=== PATIENT | female | born 1945 | race Caucasian/White ===

== ENCOUNTER 2020-08-14 13:08 | Outpatient (REF) | payer MEDICARE, SELFPAY ==
[2020-08-14 15:00] LABS: Anion Gap 13 (12-20); Blood Urea Nitrogen 20 mg/dL (9-16); Carbon Dioxide 27 mmol/L (22-29); Chloride 106 mmol/L (96-108); Estimated Glomerular Filt Rate > 60; Potassium 4.5 mmol/L (3.3-5.1); Sodium 141 mmol/L (135-145)
[2020-08-14 15:12] LABS: Free T4 (Free Thyroxine) 1.15 ng/dL (0.71-1.85)
== END 2020-08-14 13:09 | disposition home or self-care (01) ==
LOC: HO.10HDL 13:08
PROVIDERS: Visit Provider Family Medicine
DX: I10 Essential (primary) hypertension (principal); E03.9 Hypothyroidism, unspecified
CPT/HCPCS: 36415; 80051; 82565; 84439; 84520

== ENCOUNTER 2021-01-08 07:53 | Outpatient (REF) | payer MEDICARE, SELFPAY ==
--- NOTE | ~2021-01-08 | XR_ITS ---
EXAMINATION: XR BOTH KNEES AP STANDING XR RIGHT KNEE, 2 VIEWS XR LEFT KNEE, 2 VIEWS CLINICAL INFORMATION: Pain. COMPARISON: Left knee radiographs dated 01/28/2011 and bilateral knee radiographs dated 08/04/2008. TECHNIQUE: Standing AP view of both knees and lateral and sunrise views of the right and left knee. FINDINGS: Right knee: Severe medial compartment joint space narrowing with mild bony remodeling and subchondral sclerosis. Tricompartmental marginal osteophytes. No osseous erosion. No fracture or dislocation. Small joint effusion. Left knee: Severe medial compartment joint space narrowing with subchondral sclerosis. Tricompartmental marginal osteophytes. No osseous erosion. No fracture or dislocation. Trace joint effusion. No abnormal soft tissue calcification. XR/XR knee LT 2V IMPRESSION: RIGHT KNEE: Tricompartmental osteoarthritis, most severe within the medial compartment. LEFT KNEE: Tricompartmental osteoarthritic, most severe within the medial compartment.
--- NOTE | ~2021-01-08 | XR_ITS ---
EXAMINATION: XR BOTH KNEES AP STANDING XR RIGHT KNEE, 2 VIEWS XR LEFT KNEE, 2 VIEWS CLINICAL INFORMATION: Pain. COMPARISON: Left knee radiographs dated 01/28/2011 and bilateral knee radiographs dated 08/04/2008. TECHNIQUE: Standing AP view of both knees and lateral and sunrise views of the right and left knee. FINDINGS: Right knee: Severe medial compartment joint space narrowing with mild bony remodeling and subchondral sclerosis. Tricompartmental marginal osteophytes. No osseous erosion. No fracture or dislocation. Small joint effusion. Left knee: Severe medial compartment joint space narrowing with subchondral sclerosis. Tricompartmental marginal osteophytes. No osseous erosion. No fracture or dislocation. Trace joint effusion. No abnormal soft tissue calcification. XR/XR knee RT 2V IMPRESSION: RIGHT KNEE: Tricompartmental osteoarthritis, most severe within the medial compartment. LEFT KNEE: Tricompartmental osteoarthritic, most severe within the medial compartment.
--- NOTE | ~2021-01-08 | XR_ITS ---
EXAMINATION: XR BOTH KNEES AP STANDING XR RIGHT KNEE, 2 VIEWS XR LEFT KNEE, 2 VIEWS CLINICAL INFORMATION: Pain. COMPARISON: Left knee radiographs dated 01/28/2011 and bilateral knee radiographs dated 08/04/2008. TECHNIQUE: Standing AP view of both knees and lateral and sunrise views of the right and left knee. FINDINGS: Right knee: Severe medial compartment joint space narrowing with mild bony remodeling and subchondral sclerosis. Tricompartmental marginal osteophytes. No osseous erosion. No fracture or dislocation. Small joint effusion. Left knee: Severe medial compartment joint space narrowing with subchondral sclerosis. Tricompartmental marginal osteophytes. No osseous erosion. No fracture or dislocation. Trace joint effusion. No abnormal soft tissue calcification. XR/XR knee standing BI IMPRESSION: RIGHT KNEE: Tricompartmental osteoarthritis, most severe within the medial compartment. LEFT KNEE: Tricompartmental osteoarthritic, most severe within the medial compartment.
== END 2021-01-08 07:54 | disposition home or self-care (01) ==
LOC: HO.HOSX 07:53
PROVIDERS: Visit Provider Physician Assistant
DX: M17.0 Bilateral primary osteoarthritis of knee (principal)
CPT/HCPCS: 20610; 73560; 73565; 99202; J1040

== ENCOUNTER 2021-04-12 11:48 | Outpatient (REF) | payer MEDICARE, SELFPAY ==
[2021-04-12 14:26] LABS: Anion Gap 10 (12-20); Blood Urea Nitrogen 24 mg/dL (9-16); Carbon Dioxide 28 mmol/L (22-29); Chloride 106 mmol/L (96-108); Estimated Glomerular Filt Rate > 60; Potassium 4.7 mmol/L (3.3-5.1); Sodium 139 mmol/L (135-145)
[2021-04-12 14:43] LABS: Free T4 (Free Thyroxine) 1.17 ng/dL (0.71-1.85)
== END 2021-04-12 11:49 | disposition home or self-care (01) ==
LOC: HO.10HDL 11:48
PROVIDERS: Visit Provider Family Medicine
DX: E03.9 Hypothyroidism, unspecified (principal); I10 Essential (primary) hypertension
CPT/HCPCS: 36415; 80051; 82565; 84439; 84520

== ENCOUNTER 2022-03-04 10:51 | Outpatient (REF) | payer MEDICARE, SELFPAY ==
[2022-03-04 14:04] LABS: Anion Gap 15 (12-20); Blood Urea Nitrogen 18 mg/dL (9-16); Carbon Dioxide 26 mmol/L (22-29); Chloride 107 mmol/L (96-108); Estimated Glomerular Filt Rate > 60; Potassium 4.5 mmol/L (3.3-5.1); Sodium 143 mmol/L (135-145)
[2022-03-04 14:25] LABS: Free T4 (Free Thyroxine) 1.28 ng/dL (0.71-1.85); Thyroid Stimulating Hormone 4.15 uIU/mL (0.32-4.0)
== END 2022-03-04 10:52 | disposition home or self-care (01) ==
LOC: HO.10HDL 10:51
PROVIDERS: Visit Provider Family Medicine
DX: I10 Essential (primary) hypertension (principal); E03.9 Hypothyroidism, unspecified
CPT/HCPCS: 36415; 80051; 82565; 84439; 84443; 84520

== ENCOUNTER → 2022-03-17 10:08 | Outpatient (REF) | payer MEDICARE, SELFPAY ==
--- NOTE | 2022-03-17 10:44 | CA_ITS ---
Transthoracic Echocardiogram Patient (Last, First, Middle): Maggy Wheeler D Gender: Female Date of : 1945 Age: 76 Procedure Date: 03/17/2022 Procedure Type: Transthoracic Echocardiogram Location: OP Height: 165.1 cm Weight: 149.69 kg BSA: 2.45 m2 Heart Rate: bpm BP: 115 / 70 mmHg Software Implementation Project Manager: TO Referring MD: Dandre Barnes MD Symptoms: Chronic afib Study Quality: Technically Difficult/Contrast Conclusions: - 1. Low normal LV systolic function with restrictive filling pattern 2. Biatrial enlargement, right greater than left 3. Moderately severe tricuspid regurgitation 4. Moderate to severe elevation of right ventricular systolic pressure with significantly elevated right atrial pressures 5. No gross pericardial effusion Findings Procedure Information Contrast agent, definity, is being given per protocol without apparent complications. The quality of the study was technically difficult. The study quality is limited by patients body habitus. Left Ventricle Normal left ventricular cavity size. There is normal left ventricular wall thickness. The left ventricular systolic function is low normal. The visually estimated ejection fraction is between 50-55%. Spectral Doppler is indicative of a restrictive filling pattern. Elevated left ventricular end diastolic pressure. Right Ventricle The right ventricle was not well visualized. There is low normal right ventricular systolic function. Atria The left atrium is moderately dilated. Interatrial shunt cannot be excluded. The right atrium is severely dilated. Aortic Valve The aortic valve was not well visualized. There is no aortic valve stenosis. There is mild aortic valve regurgitation. Mitral Valve There is mild anterior and posterior mitral leaflet thickening. There is trace mitral valve regurgitation. There is no mitral valve stenosis. Pulmonic Valve The pulmonic valve is likely normal. There is trace to mild pulmonic valve regurgitation. Tricuspid Valve The tricuspid valve was not well visualized. There is moderate to severe tricuspid valve regurgitation. Significantly elevated right atrial pressure. Moderate to severe pulmonary hypertension is present. Great Vessels All visible segments of the aorta are normal in size. The pulmonary artery was not well visualized. Venous The inferior vena cava is moderately dilated and collapses less than 50% with inspiration. Pericardium/Pleural There is no evidence of pericardial effusion. Prior Study Comparison no previous study in the last 5 years for comparison Measurements 2D Linear Measurements IVSd: 1.00 0.6-0.9/0.6-1.0 cm LVIDd: 5.15 3.9-5.3/4.2-5.9 cm LVIDd Index: 2.10 2.4-3.2/2.2-3.1 cm/m2 LVIDs: 3.73 2.0-3.6 cm LVPWd: 1.09 0.7-1.1 cm LA Diam: 4.80 2.7-3.8/3.0-4.0 cm LAIDs Index: 1.96 1.5-2.3 cm/m2 LV Mass: 252.63 67-162/88-224 g LV Mass Index: 103.11 43-95/49-115 g/m2 LVOT Diam: 2.00 3.0+(-)1.3 cm 2D Systolic Function EF 4C: 50.70 >55% EF BiP: 51.00 >55% Mitral Valve MV VTI: 0.33 MV Pk Harshil: 1.51 MV Mn Harshil: 0.86 MV Pk Grad: 9.00 MV Mn Grad: 4.00 MV Pk E: 1.47 MV Decel Time: 222.00 E'Lateral: 11.00 E'Medial: 8.92 E/E' Med: 16.50 E/E' Lat: 13.40 PHT: 65.00 MVA PHT: 3.38 MVA Continuity: 2.54 Decel Storey: 6.61 Aortic Valve AoV Pk Harshil: 1.34 AoV Mn Harshil: 0.99 AoV VTI: 0.35 AoV Pk Grad: 7.00 Aov Mn Grad: 4.00 BRYNN Cont.VTI: 2.41 LVOT LVOT Pk Harshil: 1.17 LVOT Mn Harshil: 0.75 LVOT VTI: 0.27 LVOT Pk Grad: 5.00 LVOT Mn Grad: 3.00 LVOT Diam: 2.00 LVOT Area: 3.14 Diastolic Function MV Pk E: 1.47 E'Medial: 8.92 E/E' Med: 16.50 E' Laterial: 11.00 E/E' Lat: 13.40 Right Ventricle TAPSE (mm): 17.00 TVS' Harshil: 8.81 Tricuspid Valve TR Pk Harshil: 3.34 TR Pk Grad: 45.00 RA Press: 15.00 RVSP: 60.00 Great Vessels Aorta Sinus of Valsalva: 2.99 2.0-3.5 cm Ao Asc: 3.10 2.1-3.4 cm Updated in Other Vendor System with Status of Final Ayaz Archer MD electronically signed on 03/17/2022 6:25:17 PM with status of Final
== END ==
LOC: HO.CARD 10:08
PROVIDERS: PCP Family Medicine; Visit Provider Family Medicine
DX: I48.20 Chronic atrial fibrillation, unspecified (principal); I50.22 Chronic systolic (congestive) heart failure; I27.20 Pulmonary hypertension, unspecified; M17.0 Bilateral primary osteoarthritis of knee
CPT/HCPCS: 20610; 93306; 99212; J1040; Q9957

== ENCOUNTER 2022-08-08 10:24 | Outpatient (REF) | payer MEDICARE, SELFPAY ==
--- NOTE | ~2022-08-08 | XR_ITS ---
EXAMINATION: XR LUMBOSACRAL SPINE CLINICAL INFORMATION: Reason for Exam CHRONIC BACK PAIN, OA COMPARISON: None TECHNIQUE: 3 views of the lumbar spine FINDINGS: 5 nonrib-bearing lumbar-type vertebral bodies. Vertebral body heights are maintained. Levoconvex curvature of the lumbar spine. Great 1 anterolisthesis of L4 on L5 and L5 on S1. Advanced multilevel degenerative disc disease with loss of disc space height and facet arthropathy. Paravertebral soft tissues are unremarkable. XR/XR lumbar spine 2-3V IMPRESSION: 1. Levoconvex curvature of the lumbar spine. Great 1 anterolisthesis of L4 on L5 and L5 on S1. 2. Advanced multilevel degenerative disc disease with loss of disc space height and facet arthropathy.
[2022-08-08 12:06] LABS: Anion Gap 13 (12-20); Blood Urea Nitrogen 29 mg/dL (9-16); Carbon Dioxide 25 mmol/L (22-29); Chloride 109 mmol/L (96-108); Estimated Glomerular Filt Rate > 60; Magnesium 1.9 mg/dL (1.6-2.6); Potassium 4.2 mmol/L (3.3-5.1); Sodium 143 mmol/L (135-145)
[2022-08-08 12:09] LABS: Thyroid Stimulating Hormone 4.85 uIU/mL (0.32-4.0)
== END 2022-08-08 10:25 | disposition home or self-care (01) ==
LOC: HO.LAB 10:24
PROVIDERS: PCP Family Medicine; Visit Provider Family Medicine
DX: I10 Essential (primary) hypertension (principal); E03.9 Hypothyroidism, unspecified
CPT/HCPCS: 36415; 72100; 80051; 82565; 83735; 84439; 84443; 84520

== ENCOUNTER 2022-12-30 12:28 | Outpatient (REF) | payer MEDICARE, SELFPAY ==
[2022-12-30 13:09] LABS: MANUAL DIFF FLAG NO
[2022-12-30 13:12] LABS: Basophils Percent Auto 0.5 % (0-2); Eosinophils Absolute Auto 0.2 X10*3/uL (0.0-0.4); Eosinophils Percent Auto 2.7 % (0-4); Hematocrit 39.2 % (37.0-47.0); Hemoglobin 12.6 g/dl (12.0-16.0); Imm Gran Abs Auto 0.03 X10*3/uL (0.00-0.03); Imm Gran Pct Auto 0.4 % (0.0-0.4); Lymphocytes Absolute Auto 1.3 X10*3/uL (1.2-4.9); Lymphocytes Percent Auto 17.9 % (20-40); Mean Corpuscular HGB Conc 32.1 g/dl (31.0-35.0); Mean Corpuscular Hemoglobin 30.2 pg (27.0-33.0); Mean Platelet Volume 9.5 fL (9.4-12.3); Monocytes Absolute Auto 0.5 X10*3/uL (0.1-1.2); Monocytes Percent Auto 7.4 % (2-11); Neutrophils Absolute Auto 5.2 x10*3/uL (2.0-8.3); Neutrophils Percent Auto 71.1 % (45-73); Platelet Count 253 X10*3/uL (160-400); Red Blood Count 4.17 X10*6/uL (4.20-5.50); Red Cell Distribution Width 13.8 % (11.0-16.0); White Blood Count 7.3 X10*3/uL (4.8-10.8)
[2022-12-30 13:48] LABS: Alanine Aminotransferase 15 U/L (0-31); Anion Gap 12 (12-20); Aspartate Amino Transferase 21 U/L (5-31); Blood Urea Nitrogen 24 mg/dL (9-16); Carbon Dioxide 27 mmol/L (22-29); Chloride 108 mmol/L (96-108); Estimated Glomerular Filt Rate > 60; Potassium 4.1 mmol/L (3.3-5.1); Sodium 143 mmol/L (135-145)
[2022-12-30 13:59] LABS: Free T4 (Free Thyroxine) 1.07 ng/dL (0.71-1.85)
== END 2022-12-30 12:29 | disposition home or self-care (01) ==
LOC: HO.10HDL 12:28
PROVIDERS: Visit Provider Family Medicine
DX: I10 Essential (primary) hypertension (principal); R06.02 Shortness of breath; R53.83 Other fatigue
CPT/HCPCS: 36415; 80051; 82565; 84439; 84450; 84460; 84520; 85025

== ENCOUNTER 2023-06-10 14:31 | Outpatient (REF) | payer MEDICARE, SELFPAY ==
[2023-06-10 14:54] LABS: MANUAL DIFF FLAG NO
[2023-06-10 15:49] LABS: Basophils Percent Auto 0.5 % (0-2); Eosinophils Absolute Auto 0.3 X10*3/uL (0.0-0.4); Eosinophils Percent Auto 3.2 % (0-4); Hematocrit 40.2 % (37.0-47.0); Hemoglobin 13.2 g/dl (12.0-16.0); Imm Gran Abs Auto 0.03 X10*3/uL (0.00-0.03); Imm Gran Pct Auto 0.3 % (0.0-0.4); Lymphocytes Absolute Auto 1.6 X10*3/uL (1.2-4.9); Lymphocytes Percent Auto 17.9 % (20-40); Mean Corpuscular HGB Conc 32.8 g/dl (31.0-35.0); Mean Corpuscular Hemoglobin 30.7 pg (27.0-33.0); Mean Corpuscular Volume 93.5 fL (80.0-98.0); Mean Platelet Volume 9.5 fL (9.4-12.3); Monocytes Absolute Auto 0.6 X10*3/uL (0.1-1.2); Monocytes Percent Auto 6.8 % (2-11); Neutrophils Absolute Auto 6.3 x10*3/uL (2.0-8.3); Neutrophils Percent Auto 71.3 % (45-73); Platelet Count 242 X10*3/uL (160-400); Red Cell Distribution Width 13.7 % (11.0-16.0); White Blood Count 8.8 X10*3/uL (4.8-10.8)
[2023-06-10 15:54] LABS: Estimated Average Glucose 100 mg/dL; Hemoglobin A1c % 5.1 % (<6.0)
[2023-06-10 16:46] LABS: Alanine Aminotransferase 15 U/L (0-31); Albumin Level 4.1 g/dL (3.5-5.0); Alkaline Phosphatase 93 U/L (39-117); Anion Gap 14 (12-20); Aspartate Amino Transferase 23 U/L (5-31); Bilirubin Total 0.5 mg/dL (0.0-1.0); Blood Urea Nitrogen 30 mg/dL (9-16); Calcium 9.5 mg/dL (8.4-10.2); Carbon Dioxide 27 mmol/L (22-29); Chloride 107 mmol/L (96-108); Estimated Glomerular Filt Rate > 60; Glucose Fasting 87 mg/dL (60-99); Potassium 4.5 mmol/L (3.3-5.1); Sodium 143 mmol/L (135-145); Total Protein 7.5 g/dL (6.5-8.0)
[2023-06-10 17:00] LABS: Free T4 (Free Thyroxine) 1.07 ng/dL (0.71-1.85); Thyroid Stimulating Hormone 5.75 uIU/mL (0.32-4.0)
== END 2023-06-10 14:32 | disposition home or self-care (01) ==
LOC: HO.LAB 14:31
PROVIDERS: PCP Family Medicine; Visit Provider Family Medicine
DX: E03.9 Hypothyroidism, unspecified (principal); R06.02 Shortness of breath; R53.1 Weakness; R73.9 Hyperglycemia, unspecified
CPT/HCPCS: 36415; 80053; 83036; 84439; 84443; 85025

== ENCOUNTER 2024-03-01 12:02 | Outpatient (REF) | payer MEDICARE, SELFPAY ==
[2024-03-01 13:20] LABS: MANUAL DIFF FLAG NO
[2024-03-01 13:31] LABS: Basophils Absolute Auto 0.1 X10*3/uL (0.0-0.2); Basophils Percent Auto 0.6 % (0-2); Eosinophils Absolute Auto 0.3 X10*3/uL (0.0-0.4); Eosinophils Percent Auto 3.2 % (0-4); Hemoglobin 12.7 g/dl (12.0-16.0); Imm Gran Abs Auto 0.03 X10*3/uL (0.00-0.03); Imm Gran Pct Auto 0.4 % (0.0-0.4); Lymphocytes Absolute Auto 1.2 X10*3/uL (1.2-4.9); Lymphocytes Percent Auto 14.7 % (20-40); Mean Corpuscular HGB Conc 32.6 g/dl (31.0-35.0); Mean Corpuscular Hemoglobin 30.5 pg (27.0-33.0); Mean Corpuscular Volume 93.8 fL (80.0-98.0); Mean Platelet Volume 9.5 fL (9.4-12.3); Monocytes Absolute Auto 0.6 X10*3/uL (0.1-1.2); Monocytes Percent Auto 7.1 % (2-11); Neutrophils Absolute Auto 5.9 x10*3/uL (2.0-8.3); Platelet Count 219 X10*3/uL (160-400); Red Blood Count 4.16 X10*6/uL (4.20-5.50); Red Cell Distribution Width 13.8 % (11.0-16.0)
[2024-03-01 13:45] LABS: Alanine Aminotransferase 15 U/L (0-31); Alkaline Phosphatase 86 U/L (39-117); Anion Gap 11 (12-20); Aspartate Amino Transferase 20 U/L (5-31); Bilirubin Total 0.7 mg/dL (0.0-1.0); Blood Urea Nitrogen 24 mg/dL (9-16); Calcium 9.1 mg/dL (8.4-10.2); Carbon Dioxide 27 mmol/L (22-29); Chloride 111 mmol/L (96-108); Estimated Glomerular Filt Rate > 60; Glucose Fasting 91 mg/dL (60-99); Potassium 4.5 mmol/L (3.3-5.1); Sodium 144 mmol/L (135-145); Total Protein 7.1 g/dL (6.5-8.0)
[2024-03-01 14:25] LABS: INTERNATIONAL NORM RATIO 2.6 (0.9-1.1); Prothrombin Time 30.5 SEC (10.9-12.4)
== END 2024-03-01 12:03 | disposition home or self-care (01) ==
LOC: HO.10HDL 12:02
PROVIDERS: Visit Provider Family Medicine
DX: M17.0 Bilateral primary osteoarthritis of knee (principal); R53.1 Weakness; E03.9 Hypothyroidism, unspecified; I48.91 Unspecified atrial fibrillation; Z79.01 Long term (current) use of anticoagulants
CPT/HCPCS: 20610; 36415; 80053; 85025; 85610; 99212; J1010; J2003

== ENCOUNTER 2024-03-01 12:19 | Outpatient (AMB) | payer MEDICARE, SELFPAY ==
--- NOTE | 2024-03-01 13:02 | A.OFFVIS_ITS ---
Intake Visit Reasons: OV-B/L knee injection-last injection 03/17/22 Intake Note: Maggy is a 78 year old female who presents today for a evaluation of her bilateral knee pain, last injection 03/17/22. Patient reports her last injections gave her about 2 years of relief and would like to repeat. Allergies No Known Allergies [No Known Allergies*] Allergy (Verified 03/01/24 13:04) HPI HPI OV-B/L knee injection-last injection 03/17/22: Details: 78-year-old female who presents in the office today for a follow-up of bilateral knee pain. I last saw the patient in the office on 03/17/22 when she was given a cortisone injection to her bilateral knee. She was referred to Pain Management for further evaluation of lower back pain. While in the office today, the patient reports her last cortisone injection provided her 2 years of relief. She would like to have a repeat injection today. [facility] Surgical History H/O: hysterectomy History of arthroplasty of left ankle History of carpal tunnel surgery of left wrist Social History (Updated 03/01/24 @ 13:04 by Jess Retana) Alcohol intake: current Alcohol intake frequency: holidays/special occasions only Patient Tobacco Use Status: Never used Tobacco Current occupational status: retired Current occupation: rt handed Review of Systems Const All systems reviewed & are unremarkable except as noted in HPI and below Physical Exam Const General: cooperative, healthy appearing and no acute distress Orientation/consciousness: patient oriented x3 Resp Effort & Inspection: normal respiratory effort and able to speak in complete sentences Cardio Rate: regular rate Peripheral pulses: Peripheral pulses 2+ throughout GI Palpation (GI): Soft to palpation Skin Lesions: no lesions Rashes: no rashes Neuro General: patient oriented x3 Extrem Other: Bilateral knees no joint effusion, ecchymosis or erythema. ROM:10-90. Unable to assess Emani's due to body habitus. NVI. Psych Mental Status: mental status grossly normal Office Procedures Joint Injection/Aspiration Joint Injection/Aspiration Primary Site: right knee Secondary Site: left knee Prep: site was prepped using aseptic technique, site was prepped using sterile technique and injection warnings given Injected: 80 mg of, DepoMedrol, with 8 mL of (2% plain lido ) and in the joint Approach Used: anterolateral Procedure: The patient tolerated the procedure well, but had some pain with the injection and there was some relief with the local anesthesia Coding 22646 - Large joint Procedure code (CPT) selection complete Assessment & Plan Assessment & Plan (1) Osteoarthritis of knees, bilateral: Code(s): M17.0 - Bilateral primary osteoarthritis of knee Category: Medical Plan Ms. Wheeler is a 78-year-old female who presents in the office today for a follow- up of bilateral knee pain. I last saw the patient in the office on 03/17/22 when she was given a cortisone injection to her bilateral knee. She was referred to Pain Management for further evaluation of lower back pain. While in the office today, the patient reports her last cortisone injection provided her 2 years of relief. She would like to have a repeat injection today. The patient was offered a cortisone injection in the bilateral knees with 80 mg of Depo-Medrol. The patient was explained the risks, benefits, and alternatives to receiving this injection. After receiving consent for the injection, the patient had the procedure done while in the office today. The patient tolerated the procedure well with no complication. Patient Instructions: Scribed by Angelita Jimenez medical research associate, for Lesli Barrow PA-C on 03/01/24 at 1:24 pm EST. Coding Level of Care Code Est Pt Level 3 (38929) Diagnoses Osteoarthritis of knees, bilateral M17.0 CPT Codes Coding - 07187 Large joint: 91830 - Large joint ([id number])
== END 2024-03-01 13:30 | disposition home or self-care (01) ==
LOC: HO.HOS 12:19
PROVIDERS: PCP Family Medicine; Visit Provider Physician Assistant
DX: M17.0 Bilateral primary osteoarthritis of knee (principal)
CPT/HCPCS: 20610; 99213

== ENCOUNTER 2024-03-15 09:34 | Outpatient (REF) | payer MEDICARE, SELFPAY | END 2024-03-15 09:35 | disposition home or self-care (01) | LOC: HO.HOSX 09:34 | PROVIDERS: Visit Provider Physician Assistant | DX: M19.012 Primary osteoarthritis, left shoulder (principal); S40.012A Contusion of left shoulder, initial encounter | CPT/HCPCS: 73030; 99212 ==

== ENCOUNTER 2024-03-15 13:04 | Outpatient (AMB) | payer MEDICARE, SELFPAY ==
--- NOTE | 2024-03-15 13:27 | MHC.OFFVIS ---
Intake Visit Reasons: Newprob-Left shoulder pain-Fell 02/16/24 Intake Note: Maggy is a 78 year old right hand dominant female who presents to the office today for left shoulder pain. Patient states that she fell landing on her left side on 02/16/24. She was seen by her PCP Dr. Sheffield who referred to orthopedics. Current pain level is 8 out of 10. Her pain radiates down her arm to her hand and travels to her right shoulder. SHe has concerns of bruising located on her right bicep area. Finds relief with heating pad and oxycodone 5 mg that was prescribed by her PCP. Hx of carpal tunnel on right hand Allergies No Known Allergies [No Known Allergies*] Allergy (Verified 03/15/24 13:33) HPI HPI Newprob-Left shoulder pain-Fell 02/16/24: Details: 78-year-old right hand dominant male who presents in the office today for an evaluation of left shoulder pain. The patient was referred by Dr. Dandre Barnes for an evaluation of left shoulder pain. The patient is status post a fall that occurred on 02/16/24. While in the office today, the patient reports she had a fall and landed on her left side on 02/16/24. She reports ongoing left shoulder pain. She rates her pain a 8/10 on a pain scale. She mentions left shoulder pain radiating down her right arm and to her right hand and traveling to her right shoulder. She has tried a heating pad and oxycodone 5 mg that was prescribed by her PCP with benefit. The patient has additional concerns of bruising located on her right bicep area. She has a medical history of carpal tunnel on right hand. [facility] Surgical History History of carpal tunnel surgery of left wrist History of arthroplasty of left ankle H/O: hysterectomy Social History (Updated 03/01/24 @ 13:04 by Jess Retana) Alcohol intake: current Alcohol intake frequency: holidays/special occasions only Patient Tobacco Use Status: Never used Tobacco Current occupational status: retired Current occupation: rt handed Review of Systems Const All systems reviewed & are unremarkable except as noted in HPI and below Physical Exam Const General: cooperative, healthy appearing and no acute distress Resp Effort & Inspection: normal respiratory effort and able to speak in complete sentences Cardio Rate: regular rate Peripheral pulses: Peripheral pulses 2+ throughout GI Palpation (GI): Soft to palpation Skin Lesions: no lesions Rashes: no rashes Extrem Other: Left shoulder: Normal to inspection. No ecchymosis, erythema, or edema. Forward flexion, and abducting to 45 degrees. External rotation to neutral. Pain with cross body reach. Unable to assess drop arm or empty can due to pain and ROM limitation. NVI. Assessment & Plan Assessment & Plan (1) Arthritis of left glenohumeral joint: Code(s): M19.012 - Primary osteoarthritis, left shoulder Category: Medical (2) Contusion of shoulder, left: Code(s): S40.012A - Contusion of left shoulder, initial encounter Category: Medical Plan Ms. Wheeler is a 78-year-old right hand dominant male who presents in the office today for an evaluation of left shoulder pain. The patient was referred by Dr. Dandre Barnes for an evaluation of left shoulder pain. The patient is status post a fall that occurred on 02/16/24. While in the office today, the patient reports she had a fall and landed on her left side on 02/16/24. She reports ongoing left shoulder pain. She rates her pain a 8/10 on a pain scale. She mentions left shoulder pain radiating down her right arm and to her right hand and traveling to her right shoulder. She has tried a heating pad and oxycodone 5 mg that was prescribed by her PCP with benefit. The patient has additional concerns of bruising located on her right bicep area. She has a medical history of carpal tunnel on right hand. The patient was referred to physical therapy. I have sent a prescription for diclofenac 75 mg BID PRN. Follow-up will be in 4-6 weeks via telehealth, or sooner if needed. X-rays of the left shoulder, which were obtained while in the office today and were reviewed by me, Lesli Barrow PA-C, revealed: Glenohumeral arthritis. Negative for acute fracture or dislocation. Orders: Orders PT Evaluation and Treatment 03/15/24 M19.011 - Primary osteoarthritis, right shoulder XR shoulder LT min 2V 03/15/24 M25.519 - Pain in unspecified shoulder Medications: New diclofenac sodium 75 mg PO BID 30 days PRN 60 tabs 3RF pain Patient Instructions: Scribed by Angelita Jimenez, emergency medical service coordinator, for Lesli Barrow PA-C on 03/15/24 at 1:25 pm EST. Coding Level of Care Code Est Pt Level 3 (55117) Diagnoses Arthritis of left glenohumeral joint M19.012 Contusion of shoulder, left S40.012A
== END 2024-03-15 13:58 | disposition home or self-care (01) ==
PROVIDERS: PCP Family Medicine; Visit Provider Physician Assistant
DX: M19.012 Primary osteoarthritis, left shoulder (principal); S40.012A Contusion of left shoulder, initial encounter
CPT/HCPCS: 99213

== ENCOUNTER 2024-04-26 12:59 | Outpatient (AMB) | payer MEDICARE, SELFPAY ==
--- NOTE | 2024-04-26 11:31 | MHC.OFFVIS ---
Intake Visit Reasons: Tele - Left shoulder OA, DOI 02/16/24 Intake Note: Maggy is a 78 year old female who presents today via telephone for a follow up of her left shoulder OA, DOI 02/16/24. PT? Allergies No Known Allergies [No Known Allergies*] Allergy (Verified 03/15/24 13:33) HPI HPI Tele - Left shoulder OA, DOI 02/16/24: Details: 78-year-old right-hand dominant female who presents over the telephone for a telehealth appointment regarding a follow-up of left shoulder pain/osteoarthritis. The patient had a fall and landed on her left side that occurred on 02/16/24. I last saw the patient in the office on 03/15/24 when she was referred to physical therapy and prescribed diclofenac 75 mg PO BID PRN for pain. While in the office today, the patient reports persistent left shoulder pain with no improvement. She states a physical therapist visited her house one time and requested that they demonstrate the exercise to her. The patient tried to continue performing the exercises; however, the pain was too intense to complete the exercises. She has a medical history of carpal tunnel in her right hand. [facility] Surgical History History of carpal tunnel surgery of left wrist History of arthroplasty of left ankle H/O: hysterectomy Social History (Updated 03/01/24 @ 13:04 by Jess Retana) Alcohol intake: current Alcohol intake frequency: holidays/special occasions only Patient Tobacco Use Status: Never used Tobacco Current occupational status: retired Current occupation: rt handed Review of Systems Const All systems reviewed & are unremarkable except as noted in HPI and below Reports snoring Resp Reports snoring Telehealth Telehealth Minutes spent on Phone/Video with Pt.: 10 Assessment & Plan Assessment & Plan (1) Arthritis of left glenohumeral joint: Code(s): M19.012 - Primary osteoarthritis, left shoulder Category: Medical (2) Contusion of shoulder, left: Code(s): S40.012A - Contusion of left shoulder, initial encounter Category: Medical Plan Ms. Wheeler is a 78-year-old right-hand dominant female who presents over the telephone for a telehealth appointment regarding a follow-up of left shoulder pain/osteoarthritis. The patient had a fall and landed on her left side that occurred on 02/16/24. I last saw the patient in the office on 03/15/24 when she was referred to physical therapy and prescribed diclofenac 75 mg PO BID PRN for pain. While in the office today, the patient reports persistent left shoulder pain with no improvement. She states a physical therapist visited her house one time and requested that they demonstrate the exercise to her. The patient tried to continue performing the exercises; however, the pain was too intense to complete the exercises. She has a medical history of carpal tunnel in her right hand. I discussed both conservative and surgical treatment options with the patient, including cortisone injection into the glenohumeral joint as well as total shoulder arthroplasty. The patient deferred total shoulder arthroplasty at this time. She would like to discuss moving forward with a cortisone injection with her PCP. I would recommend the injection be done under ultra imaging guidance at the hospital. She was advised to contact our office should she move forward with the cortisone injection, and I am happy to place the order. She requested a refill of oxycodone 10 mg PO, which her PCP prescribed to her for pain relief. Unfortunately, I do not prescribe narcotic pain medications for chronic issues and directed the patient to contact her PCP regarding any narcotic refills. Follow-up will be PRN, or sooner if needed. Duration of telehealth visit: 10 minutes. Patient Instructions: Scribed by Angelita Jimenez, vice president medical affairs, for Lesli Barrow PA-C on 04/26/24 at 1:30 pm EST. Coding Level of Care Code Tele Est Pt Level 3 (19177) Diagnoses Arthritis of left glenohumeral joint M19.012 Contusion of shoulder, left S40.012A
== END 2024-04-26 13:28 | disposition home or self-care (01) ==
PROVIDERS: PCP Family Medicine; Visit Provider Physician Assistant
DX: M19.012 Primary osteoarthritis, left shoulder (principal); S40.012A Contusion of left shoulder, initial encounter
CPT/HCPCS: G2012

== ENCOUNTER 2024-10-20 11:25 | Outpatient (REF) | payer MEDICARE, SELFPAY ==
--- OUTSIDE RECORDS SUMMARY | 2024-10-20 11:48 | XMS_ITS ---
Author Name [facility] Organization Unknown Encounters Encounter Type Encounter Reason Primary Diagnosis Location Date Ambulatory [facility] 05/16/2024 Ambulatory [facility] 05/16/2024 Ambulatory [facility] 05/16/2024
[2024-10-20 13:41] LABS: Anion Gap 13 (12-20); Blood Urea Nitrogen 41 mg/dL (9-16); Carbon Dioxide 28 mmol/L (22-29); Chloride 104 mmol/L (96-108); Estimated Glomerular Filt Rate 49; Potassium 5.5 mmol/L (3.3-5.1); Sodium 139 mmol/L (135-145)
[2024-10-20 13:59] LABS: Free T4 (Free Thyroxine) 1.31 ng/dL (0.71-1.85); Thyroid Stimulating Hormone 3.28 uIU/mL (0.32-4.0)
== END 2024-10-20 11:26 | disposition home or self-care (01) ==
LOC: HO.10HDL 11:25
PROVIDERS: Visit Provider Family Medicine
DX: I10 Essential (primary) hypertension (principal); E03.9 Hypothyroidism, unspecified
CPT/HCPCS: 36415; 80051; 82565; 84439; 84443; 84520

== ENCOUNTER 2024-11-04 13:03 | Outpatient (AMB) | payer MEDICARE, SELFPAY ==
--- NOTE | 2024-11-04 13:15 | MHC.OFFVISCO ---
Intake Intake Visit Reasons: Anticoagulation Billing Clerk Required: No Allergies No Known Allergies [No Known Allergies*] Allergy (Verified 11/04/24 13:10) Medication List - Last Reconciled 11/04/24 by Iman Hardin RN ascorbic acid (vitamin C) 250 mg PO BID famotidine 40 mg PO DAILY furosemide 20 mg PO DAILY levothyroxine 125 mcg PO DAILY meloxicam 15 mg PO DAILY metoprolol succinate ER 50 mg PO DAILY oxycodone 5 mg PO BID PRN potassium chloride ER (Klor-Con M) 10 mEq PO DAILY tizanidine 4 mg PO BEDTIME warfarin 5 mg PO DAILY Is last menstrual period known: Yes (age 52 post hysterectomy ) Post menopausal: Yes Patient : No (3 living childern 2 sons and 1 daughter all local ) Nursing Note New pt from Dr Barnes office has her own home [employer] INR meter. INR s mostly stable and in range. Comes with son via wheelchair - unable to walk long distances due to sever arthritic knees and frequent falls. She is alert and oriented x 3 pleasant lady. She is able to demonstrate knowledge in how to use her POC meter and her warfarin therapy with out complications. Education packet given with instructions with good verbal understanding of instructions given. She has been on warfarin for over 13 years for AFib . an area of concern is her falling due to her knees. She just had cortisone injections both knees and feeling some what better. She had an appt last week with md last week. C/o of BARAKAT but improves with rest. May be related to decondition due to her knee and back pain. INR: 1.9 therapeutic range 1.5-3.0 Medications and supplements reviewed and updated No changes in health, diet, medications, or supplements, Denies any signs and symptoms of bleeding or bruising or clotting. Bleeding, bruising, clotting discussed Nutritional guidance given - review food list weekly ,eat orange and reds to help raise the INR Dose: 5 mg daily F/U INR: 2 weeks Patient verbalizes understanding of instructions given Anti-Coag Initial Assessment Social Hx Patient Tobacco Use Status: Never used Tobacco alcohol intake: current Alcohol intake frequency: holidays/special occasions only Housing: House Housing Other:: lives with son current occupation: retiered current occupational exposures/hazards: No Fall risk assessment: 2 + Falls in past year (looses balance - uses walker- arthritic knees ) Cardiovascular Hx: HTN (controlled ) and Arrhythmias (Afib 13 years ago ) Endocrine Hx: Thyroid Disease Musculoskeletal Hx: Arthritis (cortisone injections knees last week, 10/11/24 shoulders , arthritis in lower spine and sciatica ) GI Hx: Other (reflux) Hx: Other (incontinence / bladder control ) Cancer HX: No Psych. Illness/Depression: No Is last menstrual period known: Yes (age 52 post hysterectomy ) Post menopausal: Yes Patient : No (3 living childern 2 sons and 1 daughter all local ) Surgeries: carpal tunnel left arm surgery 2019 - did not go well, appt next week to ortho in [facility] to k right arm carpal tunnel Hysterectomy age 50s - due to heavy bleeding Anti-Coag. Education Record Teaching Recipient: Patient What is the easiest way to learn: Reading, Demonstration and Education Packet Significant other who can be involved in Teaching Process when Indicated: Sameer ANSARI Billing Clerk Required: No Readiness To Learn: Good Teaching Methods: Demonstration, Discussion, Handout and Teach Back Response to Teaching: Verbalize Understanding Education Intervention/Brief Description of Teaching 1. Able to state reason for taking Warfarin: Yes 2. Able to state Pain Management techniques: Yes (tylenol 650 mg po BID ) 3. Able to state action of Warfarin.: Yes Able to state current dose, pill color, how and when Warfarin to be taken: Yes Able to identify signs of bleeding &/or clotting: Yes 4. Able to identify need to keep diet consistent in regard to vitamin K intake: Yes Able to state restriction on alcohol: Yes 5. Able to state need for compliance with PT/INR testing: Yes Describes rationale for carrying ID and wearing Medic Alert bracelet: Yes Patient instructed to monitor for excess bruising or signs/symptoms of clotting or bleeding: Yes 6. Able to state that there are drugs that interact with Warfin: Yes 7. Able to state the need to seek medical attention when illness/injury occur.: Yes Describes the need to avoid activities with high risk of injury: Yes 8. Able to state duration of treatment: Yes 9. Demonstrates understanding of notifying all providers of pending dental surgical, or other invasive procedures: Yes 10. Able to state Home Care instructions Questionnaires HAS-BLED Does the patient had uncontrolled Hypertension?: No Does the patient have renal disease?: No Does the patient have liver disease?: No Does the patient have a history of stroke?: No Has the patient had major bleeding or predisposition to bleeding?: Yes Does the patient have labile INRs?: No Is the patient over 65 years of age?: Yes Is the patient on medications that gives them a predisposition to bleeding?: Yes Does the patient use alcohol?: Yes (rare but does on occassion) HAS-BLED Score: 4 CHADSVASC Age: 75 or over Gender: Female Does the patient have a history of CHF?: No Does the patient have a history of Hypertension?: Yes Does the patient have a history of Stroke/TIA/Thromboembolism?: No Does the patient have a history of Vascular Disease (prior ID, PAD or aortic plaque)?: No Does the patient have a history of Diabetes?: No CHADS VACS Score: 4 Mya Prediction Score Rsk VTE Active Cancer: No Previous VTE, excluding superficial vein thrombosis: No Reduced mobility: No Already known Thrombophilic Condition: No With-in last month Trauma and/or Surgery: No Elderly 70 year or older: Yes Heart and/or Respiratory Failure: No Acute Myocardial infarction and/or Ischemic Stroke: No Acute Infection and/or Rheumatologic Disorder: No Obesity (BMI 30 or greater): Yes Ongoing Hormonal Treatment: No Score: 2 Mya Score less than 4; Low Risk of VTE Mya Score 4 or greater; High Risk of VTE Coding Level of Care Code New Patient Level 2 Diagnoses Current use of anticoagulant therapy Z79.01 Results AMB INR Fingerstick AMB INR Fingerstick 1.9 Last Edit by Iman Hardin RN on 11/04/24 13:59 MANUAL ENTRY Assessment & Plan Assessment & Plan (1) Current use of anticoagulant therapy: Code(s): Z79.01 - intermediate manager (current) use of anticoagulants Category: Medical
[2024-11-04 14:00] LABS: Prothrombin Time Whole Bld POC 22.9 sec (11.1-13.5); ~PT, ~INR - Anti Coag Clinic 1.9 (0.9-1.1)
== END 2024-11-04 16:43 | disposition home or self-care (01) ==
LOC: HO.ACS 13:03
PROVIDERS: PCP Family Medicine; Visit Provider Internal Medicine Medical Oncology
DX: Z79.01 Long term (current) use of anticoagulants (principal)

== ENCOUNTER → 2024-11-04 13:03 | Outpatient (BNVA) | payer MEDICARE, SELFPAY | PROVIDERS: PCP Family Medicine; Visit Provider Internal Medicine Medical Oncology | DX: I48.20 Chronic atrial fibrillation, unspecified (principal); Z79.01 Long term (current) use of anticoagulants; Z51.81 Encounter for therapeutic drug level monitoring | CPT/HCPCS: 85610; 99202 ==

== ENCOUNTER → 2024-11-17 15:59 | Outpatient (BNVA) | payer MEDICARE, MEDICAID, SELFPAY | PROVIDERS: PCP Family Medicine; Visit Provider Internal Medicine Medical Oncology | DX: Z13.89 Encounter for screening for other disorder (principal) ==

== ENCOUNTER 2025-02-22 10:49 | Outpatient (AMB) | payer MEDICARE, MEDICAID, SELFPAY ==
--- NOTE | 2025-02-22 10:58 | A.OFFPC_ITS ---
Vital Signs 02/22/25 11:12 Height 5 ft 5 in Weight 146.057 kg BMI 53.6 BP 134/70 Respiration 16 Pulse 72 Pulse Source Pulse Oximeter Temp 97.3 F Temp Source Temporal Artery Scan Pulse Oximetry (%) 99 Oxygen Delivery Method Room Air Intake Visit Reasons: follow up Residential Sales Representative Required: No Accompanied by: Self / Same As Patient Allergies No Known Allergies (No Known Allergies*) Allergy (Verified 02/22/25 10:58) Tobacco use date assessed: 02/22/25 Fall risk assessment: 2 + Falls in past year Last assessed Fall Risk: 02/22/25 Dental Screening Dental Screen Date: 02/22/25 Did you have a dental visit in the last 12 months?: No Did you have a dental problem in the last 6 months where you did not have access to dental care?: No Was dental information given to patient?: No HPI HPI Comments History of Present Illness Details 79-year-old female with history of CAD, osteoarthritis, hypothyroidism, GERD, morbid obesity, atrial fibrillation presenting to the office today for m anagement of chronic conditions and to establish care. She is here today with her sister. CAD-followed with Dr. Mccormack, overall stable. On coumadin. No asa. On metoprolol. Not on statin. No lipid panel on file to review. Reviewed last echocardiogram showing low normal ejection fraction with EF 50-55%. Also shows moderate to severe tricuspid regurgitation as well as moderate to severe elevation of right systolic pressures with significantly elevated right atrial pressures. Biatrial enlargement, right greater than left Hypertension-blood pressure 134/70. On metoprolol 50 mg ER and Lasix 20 mg daily GERD-famotidine, controlled Paroxysmal atrial fibrillation-no longer following with Cardiology as above. anticoagulated with Coumadin. Following with [facility], last INR 2.0, goa l. At home. Asymptomatic HTN- BP 134/70. On metoprolol Morbid obesity-BMI 53.6. Has lost 50 pounds since May. Has made significant changes to diet. Limited exercise due to severe osteoarthritis of multiple joints and degenerative disc disease RA/OA/DDD/carpal tunnel/tendonitis of the hands- getting cortisone injections in knees and shoulders. Following with Lesli Matson. Using walker at home and wheelchair when outside of the house. Counseled on risks of recurrent cortisone use Concerns: Reports her indoor/outdoor cat who is UTD with rabies vaccination bit the patient's right forearm while engaged in play. Cats behavior has been normal. This morning she woke up with a large area of erythema with warmth around the bite jagruti. No drainage. No fevers or chills. Health maintenance: Last mammogram 07/2022, 1 year follow-up advised, overdue No longer undergoing colonoscopies No longer undergoing Pap smears Due for DEXA scan ROS: See HPI EXAM: Constitutional - Awake and Alert, No apparent distress Eyes - PERRL Cardiovascular - S1S2, RRR, IV/ blowing holosytolic murmur at lower left sternal border. 1+ ble edema Respiratory - Normal lung expansion, Normal respiratory effort, No respiratory distress, CTA bilaterally Extremities - no calf tenderness bilaterally, no swelling. Venous stasis dermatitis with prominent veins over the right ankle Skin - Warm/Dry. pinpoint punture of the dorsum of the right forearm with small scratch as well. 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, bilateral GERD (gastroesophageal reflux disease) Surgical History History of carpal tunnel surgery of left wrist History of arthroplasty of left ankle H/O: hysterectomy Social History Housing: House Housing Other:: lives with son Alcohol intake: current Alcohol intake frequency: holidays/special occasions only Patient Tobacco Use Status: Never used Tobacco e-Cigarette/Vaping Use: Never Used service: No Current occupational status: retired Current occupation: retiered Current occupational exposures/hazards: No Cognitive needs: Yes (Cane, walker, wheelchair PRN) Hearing needs: No Vision needs: Yes (Rx glasses/reading glasses PRN) Questionnaire PHQ-9 Over the last 2 weeks, how often have you been bothered by any of the following problems? 1. Little interest or pleasure in doing things: not at all 2. Feeling down, depressed, or hopeless: not at all 3. Trouble falling or staying asleep, or sleeping too much: not at all 4. Feeling tired or having little energy: not at all 5. Poor appetite or overeating: not at all 6. Feeling bad about yourself - or that you are a failure or have let yourself or your family down: not at all 7. Trouble concentrating on things, such as reading the newspaper or watching television: not at all 8. Moving or speaking so slowly that other people could have noticed. Or the opposite - being so fidgety or restless that you have been moving around a lot more than usual: not at all 9. Thoughts that you would be better off or of hurting yourself in some way: not at all Total score: 0 Depression Screening Interpretation: Negative Depression Screening Done: Yes Source: Developed by Drs. Canelo Santiago, Amy Jauregui, Zack Cleveland and colleagues, with an educational barrington from [employer]. Thrive Questionnaire Date Thrive assessed: 02/22/25 I am a: Patient What is your living situation today?: I have a steady place to live Within the past 12 months, did the food you bought not last and you didn't have the money to get more?: Never true Within the past 12 months, did you worry whether your food would run out before you got money to buy more?: Never true Do you have trouble paying for medicines?: No Do you have trouble getting transportation to medical appointments?: No Do you have trouble paying your heating and electricity bill?: No Do you have trouble taking care of your child, family member or friend?: No Do you have trouble with day-to-day activities such as bathing, preparing meals, shopping, managing finances, etc.?: No Are you currently unemployed and looking for a job?: No Are you interested in more education?: No Please select the resources that you would like help with: None THRIVE Score: 0 MARITZA-7 AMB Questionnaire MARITZA-7 Date MARITZA - 7 assessed: 02/22/25 Feeling nervous, anxious, or on edge: 0 = Not at all Not being able to stop or control worryin = Not at all Worrying too much about different things: 0 = Not at all Trouble relaxin = Not at all Being so restless that it is hard to sit still: 0 = Not at all Becoming easily annoyed or irritable: 0 = Not at all Feeling afraid as if something awful might happen: 0 = Not at all Total MARITZA-7 score (0-4 normal; 5-9 mild; 10-14 moderate; 15-21 severe): 0 Source: Developed by Drs. Canelo Santiago, Amy Jauregui, Zack Cleveland and colleagues, with an educational barrington from [employer]. Physical exam (Primary Care) Vital Signs: Last Vital Signs Temp 97.3 F 02/22/25 11:12 Pulse 72 02/22/25 11:12 Resp 16 02/22/25 11:12 BP 134/70 02/22/25 11:12 Pulse Ox 99 02/22/25 11:12 Oxygen Delivery Method Room Air 02/22/25 11:12 BMI result Body Mass Index 53.6 Tobacco/Smoking Status: Tobacco use Status Tobacco use date assessed 02/22/25 02/22/25 11:18 Patient Tobacco Use Status Never used Tobacco 02/22/25 11:01 e-Cigarette/Vaping Use Never Used 02/22/25 11:18 PHQ-9: PHQ-9 Score PHQ-9: Total score 0 02/22/25 11:20 Depression Screening Interpretation: Negative Thrive Assessment: Date of Thrive Assessment Date Thrive assessed 02/22/25 02/22/25 11:20 Immunizations Boostrix Tdap 2.5 Lf unit-8 mcg-5 Lf/0.5 mL intramuscular syringe Performing Provider: RAFA Cheng Performing Location: [facility] Adult Primary Care-10 HD Administered by: SHANEKA Alcantara on 02/22/25 11:45 Variance Reason: Prevent Infection 2 Dose Route Admin Location Dispensed Lot Number Expiration Date [facility] Piling Setter 0.5 mL IM Right Deltoid 0.5 mL [id number] 06/18/26 [id number] Twitch Total Dispensed Waste 0.5 mL 0 % VIS Given Date VIS Provided VIS Publication Date 02/22/25 Single Vaccine 20 Eligibility Eligibility Date Funding Source Not [facility] Eligible 02/22/25 Private Coding Level of Care Code New Pt Level 4 (74405) Complex EM visit Add On G2211 Diagnoses Cat bite W55.01XA Afib I48.91 Hypothyroidism E03.9 HFrEF (heart failure with reduced ejection fraction) I50.20 Hypertension I10 Morbid obesity with BMI of 50.0-59.9, adult E66.01; Z68.43 Assessment & Plan Assessment & Plan (1) Cat bite: Code(s): W55.01XA - Bitten by cat, initial encounter Category: Medical Plan: Low risk for rabies, cat is fully vaccinated, minor puncture of the skin without evidence of abscess. Prescribed Augmentin twice daily x7 days, discussed if worsening, should add MRSA protection with doxycycline but will hold for now. Tdap is ordered and administered. Monitor for signs and symptoms of worsening infection (2) Afib: Code(s): I48.91 - Unspecified atrial fibrillation Category: Medical Plan: Rate controlled. Continue Coumadin, continue with INRs as scheduled, last INR therapeutic. Continue metoprolol for rate control. We will continue monitoring (3) Hypothyroidism: Code(s): E03.9 - Hypothyroidism, unspecified Category: Medical Plan: TSH ordered. Continue levothyroxine (4) HFrEF (heart failure with reduced ejection fraction): Code(s): I50.20 - Unspecified systolic (congestive) heart failure Category: Medical Plan: Symptomatically euvolemic. Continue Lasix. Updated echocardiogram ordered to also evaluate tricuspid regurgitation and right ventricular systolic pressure elevation (5) Hypertension: Code(s): I10 - Essential (primary) hypertension Category: Medical Plan: Controlled. Continue metoprolol (6) Morbid obesity with BMI of 50.0-59.9, adult: Code(s): E66.01 - Morbid (severe) obesity due to excess calories; Z68.43 - Body mass index [BMI] 50.0-59.9, adult Category: Medical Plan: Congratulated on recent weight loss efforts. Continue with dietary changes and exercise as able. Continue following with Orthopedic surgery for management of osteoarthritis with pain improving with cortisone injections as well as weight loss. Plan Follow-up in the office in 3 months. DEXA scan ordered labs to be completed today Orders: Orders Basic Metabolic Panel Today E03.9 - Hypothyroidism, unspecified, E87.5 - Hyperkalemia, I48.91 - Unspecified atrial fibrillation, K21.9 - Gastro- esophageal reflux disease without esophagitis, Z79.01 - care home (current) use of anticoagulants Liver Panel Today E03.9 - Hypothyroidism, unspecified, E87.5 - Hyperkalemia, I48.91 - Unspecified atrial fibrillation, K21.9 - Gastro-esophageal reflux disease without esophagitis, Z79.01 - care home (current) use of anticoagulants XR DEXA axial skeleton Today M89.8X9 - Other specified disorders of bone, unspecified site, Z78.0 - Asymptomatic menopausal state Complete Blood Count Auto Diff Today E03.9 - Hypothyroidism, unspecified, E87.5 - Hyperkalemia, I48.91 - Unspecified atrial fibrillation, K21.9 - Gastro- esophageal reflux disease without esophagitis, 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) use of anticoagulants Lipid Panel Today E03.9 - Hypothyroidism, unspecified, E87.5 - Hyperkalemia, I48.91 - Unspecified atrial fibrillation, K21.9 - Gastro-esophageal reflux disease without esophagitis, Z79.01 - care home (current) use of anticoagulants TSH reflex Free T4 Today E03.9 - Hypothyroidism, unspecified, E87.5 - Hyperkalemia, I48.91 - Unspecified atrial fibrillation, K21.9 - Gastro- esophageal reflux disease without esophagitis, Z79.01 - care home (current) use of anticoagulants TDaP Immunization Today Z23 - Encounter for immunization CA echo transthoracic complete Today I07.1 - Rheumatic tricuspid insufficiency, I48.91 - Unspecified atrial fibrillation, I50.20 - Unspecified systolic (congestive) heart failure, I51.89 - Other ill-defined heart diseases Medications: New amoxicillin-pot clavulanate 875-125 mg 1 tab PO BID 14 tabs 0RF
[2025-02-22 11:12] VITALS: BP 134/70; PULSE 72; RESP 16; TEMP 36.3; O2SAT 99; BMI 53.6
== END 2025-02-22 11:51 | disposition home or self-care (01) ==
LOC: HO.HMCHD 10:50
PROVIDERS: PCP Internal Medicine; Visit Provider Physician Assistant
DX: I11.0 Hypertensive heart disease with heart failure (principal); I48.91 Unspecified atrial fibrillation; I50.20 Unspecified systolic (congestive) heart failure; E66.01 Morbid (severe) obesity due to excess calories; W55.01XA Bitten by cat, initial encounter; Z68.43 Body mass index [BMI] 50.0-59.9, adult; E03.9 Hypothyroidism, unspecified; Z23 Encounter for immunization

== ENCOUNTER → 2025-02-22 10:49 | Outpatient (BNVA) | payer MEDICARE, MEDICAID, SELFPAY | PROVIDERS: PCP Internal Medicine; Visit Provider Physician Assistant | DX: I48.0 Paroxysmal atrial fibrillation (principal); Z23 Encounter for immunization; E03.9 Hypothyroidism, unspecified; I11.0 Hypertensive heart disease with heart failure; I50.20 Unspecified systolic (congestive) heart failure; E66.01 Morbid (severe) obesity due to excess calories; Z68.43 Body mass index [BMI] 50.0-59.9, adult; I25.10 Atherosclerotic heart disease of native coronary artery without angina pectoris; K21.9 Gastro-esophageal reflux disease without esophagitis; Z79.01 Long term (current) use of anticoagulants; Z79.899 Other long term (current) drug therapy | CPT/HCPCS: 90471; 90715; 96127; 99202 ==

== ENCOUNTER 2025-02-22 11:54 | Outpatient (REF) | payer MEDICARE, MEDICAID, SELFPAY ==
[2025-02-22 13:06] LABS: MANUAL DIFF FLAG NO
[2025-02-22 13:10] LABS: Hematocrit 38.8 % (37.0-47.0); Hemoglobin 12.8 g/dl (12.0-16.0); Imm Gran Abs Auto 0.05 X10*3/uL (0.00-0.03); Imm Gran Pct Auto 0.4 % (0.0-0.4); Lymphocytes Absolute Auto 1.3 X10*3/uL (1.2-4.9); Mean Corpuscular HGB Conc 33.0 g/dl (31.0-35.0); Mean Corpuscular Hemoglobin 32.3 pg (27.0-33.0); Mean Corpuscular Volume 98.0 fL (80.0-98.0); NRBC Abs Auto 0.000 X10*3/uL (0.0-0.012); NRBC Pct Auto 0.0 /100WBC (0.0-0.2); Platelet Count 267 X10*3/uL (160-400); Red Blood Count 3.96 X10*6/uL (4.20-5.50); White Blood Count 11.7 X10*3/uL (4.8-10.8)
[2025-02-22 13:35] LABS: Alanine Aminotransferase 12 U/L (0-31); Albumin Level 4.2 g/dL (3.5-5.0); Alkaline Phosphatase 65 U/L (39-117); Anion Gap 12 (12-20); Aspartate Amino Transferase 20 U/L (5-31); Blood Urea Nitrogen 23 mg/dL (9-16); Calcium 9.3 mg/dL (8.4-10.2); Carbon Dioxide 26 mmol/L (22-29); Chloride 108 mmol/L (96-108); Cholesterol 165 mg/dL (<200); Estimated Glomerular Filt Rate 48; HDL Cholesterol 46 mg/dL (>40); Potassium 4.1 mmol/L (3.3-5.1); Sodium 142 mmol/L (135-145); Total Protein 6.7 g/dL (6.5-8.0); Triglycerides 103 mg/dL (<150)
== END 2025-02-22 11:55 | disposition home or self-care (01) ==
LOC: HO.10HDL 11:54
PROVIDERS: Visit Provider Physician Assistant
DX: I48.91 Unspecified atrial fibrillation (principal); K21.9 Gastro-esophageal reflux disease without esophagitis; E03.9 Hypothyroidism, unspecified; E87.5 Hyperkalemia; Z79.01 Long term (current) use of anticoagulants
CPT/HCPCS: 36415; 80048; 80061; 80076; 84443; 85025

== ENCOUNTER 2025-05-01 10:01 | Outpatient (AMB) | payer MEDICARE, MEDICAID, SELFPAY ==
--- NOTE | 2025-05-01 10:09 | MHC.OFFVISCO ---
Intake Intake Visit Reasons: Anticoagulation Allergies No Known Allergies (No Known Allergies*) Allergy (Verified 05/01/25 10:01) Medication List - Last Reconciled 05/01/25 by Monserrat Chacon RN amoxicillin-pot clavulanate 875-125 mg 1 tab PO BID ascorbic acid (vitamin C) 250 mg PO BID famotidine 40 mg PO DAILY furosemide 20 mg PO DAILY levothyroxine 125 mcg PO DAILY meloxicam 15 mg PO DAILY metoprolol succinate ER 50 mg PO DAILY oxycodone 5 mg PO BID PRN potassium chloride ER (Klor-Con M) 10 mEq PO DAILY tizanidine 4 mg PO BEDTIME warfarin 5 mg See Protocol PO DAILY Nursing Note INR received from [facility] INR: 2.6 in therapeutic range of 1.5-3.0 No changes indicated per patient assessment questionnaire No changes in health, diet, supplements or meds No signs and symptoms of bleeding or bruising or clotting Dose: 5mg daily Retest: 05/15/25 Anti-Coag Initial Assessment Social Hx Patient Tobacco Use Status: Never used Tobacco alcohol intake: current Alcohol intake frequency: holidays/special occasions only Cardiovascular Hx: HTN and Arrhythmias Endocrine Hx: Thyroid Disease Musculoskeletal Hx: Arthritis GI Hx: Other Hx: Other Cancer HX: No Psych. Illness/Depression: No Coding Level of Care Code Est Patient Level 1 Diagnoses Current use of anticoagulant therapy Z79.01 Results AMB INR Fingerstick AMB INR Fingerstick 2.6 Last Edit by Monserrat Chacon RN on 05/01/25 10:03 [facility] Assessment & Plan Assessment & Plan (1) Current use of anticoagulant therapy: Code(s): Z79.01 - buttermaker helper (current) use of anticoagulants Category: Medical
== END 2025-05-01 11:52 | disposition home or self-care (01) ==
LOC: HO.ACS 10:01
PROVIDERS: PCP Physician Assistant; Visit Provider Internal Medicine Medical Oncology
DX: Z79.01 Long term (current) use of anticoagulants (principal)

== ENCOUNTER → 2025-05-01 10:01 | Outpatient (BNVA) | payer MEDICARE, MEDICAID, SELFPAY | PROVIDERS: PCP Physician Assistant; Visit Provider Internal Medicine Medical Oncology | DX: I48.19 Other persistent atrial fibrillation (principal); Z51.81 Encounter for therapeutic drug level monitoring; Z79.01 Long term (current) use of anticoagulants | CPT/HCPCS: 85610; 99211 ==